=== PATIENT | female | born 1965 | race Caucasian/White ===

== ENCOUNTER 2022-10-20 06:36 | Emergency (ER) | payer SELFPAY ==
[2022-10-20 06:55] VITALS: BP 106/73; PULSE 80; RESP 18; TEMP 36.1; O2SAT 96; BMI 32.0
--- NOTE | 2022-10-20 07:25 | ED.GENADULT ---
HPI - General Adult General Chief complaint: Back Pain/Injury Stated complaint: Severe Back Pain Time Seen by Provider: 10/20/22 07:23 Source: patient Mode of arrival: ambulatory Limitations: no limitations History of Present Illness HPI narrative: Patient is a 57-year-old female presenting with lower back pain and spasming since Saturday. She works as a [employer] and had a 12 hour shift on Saturday, denies any trauma. States she woke up Saturday with lower back pain. She has used ice, heat, ibuprofen, and took 1 Flexeril yesterday without any relief of symptoms. She states that this morning she developed pain radiating down her right posterior upper leg. She denies any saddle anesthesia, bowel or bladder incontinence, fevers. She denies any numbness or tingling to her legs. She denies any history of prior back surgeries. She denies any abdominal pain or urinary symptoms but does report some lower abdominal bloating, denies urinary retention. She denies any history of cancer, IV drug use. Related Data Previous Rx's Medication Instructions Recorded cyclobenzaprine 5 mg tablet 5 mg PO TID PRN muscle spasm #12 10/20/22 tabs lidocaine 5 % topical patch 1 patch topical DAILY #15 ea 10/20/22 nitrofurantoin macrocrystal 100 mg 100 mg PO BID 7 days #14 caps 10/20/22 capsule Allergies Allergy/AdvReac Type Severity Reaction Status Date / Time amoxicillin Allergy Rash Verified 10/20/22 06:54 cephalexin [From Keflex] Allergy Rash Verified 10/20/22 06:54 fluticasone [From Flonase] Allergy Rash Verified 10/20/22 06:54 Review of Systems Review of Systems: As per HPI Yes all other systems are reviewed and are negative Constitutional: Constitutional: Reports as per HPI Neurologic: Denies Sensory deficit (Neuro) [facility] Social History Social History Advance Directives: Yes Advance Directives on File: No Physical Exam ED Vital Signs: Vital Signs - 24 hr 10/20/22 06:55 10/20/22 07:51 Temperature 96.9 F Pulse Rate 80 Respiratory Rate 18 18 Blood Pressure 106/73 Pulse Oximetry 96 Oxygen Delivery Method Room Air BMI result Body Mass Index 32.0 Const General: cooperative, healthy appearing and no acute distress Orientation/consciousness: oriented to person, oriented to place, oriented to time and patient oriented x3 Limitations: no limitations [facility] Head: Yes normocephalic and Yes atraumatic Ears: external ears normal General nose exam: Normal external nose present Face and sinus: Yes face symmetric Mouth: oropharynx normal and moist mucous membranes Throat: Yes uvula midline Eyes Pupils: Equal, round and reactive pupils present Neck Neck: Yes normal visual inspection and Yes supple Resp Effort & Inspection: normal respiratory effort and able to speak in complete sentences Auscultation: clear to auscultation bilaterally Cardio Rate: regular rate Rhythm: regular rhythm Heart sounds: S1 normal heart sound present and S2 normal heart sound present GI Palpation (GI): Soft to palpation, nontender and No Rebound tenderness present Auscultation: normoactive bowel sounds General: Yes no CVA tenderness Back/Spine/Pelvis Back: no CVA tenderness Thoracic/Lumbar Spine: thoracic and lumbar spine normal to inspection, No Thoracic/lumbar spine scar(s), thoraco-lumbar ROM normal, straight leg raise negative bilaterally, pain with thoraco-lumbar ROM, No paraspinal muscle tenderness, thoraco-lumbar spasm on the right greater than left, No thoracic spinal tenderness and No lumbar spinal tenderness Pelvis: no pain with anterior-posterior compression and no pain with lateral compression Sacroiliac joints: on the right nontender and on the left nontender Skin General skin exam: elasticity normal and turgor normal Neuro General: oriented to person, oriented to place, oriented to time, patient oriented x3, moves all extremities, no focal motor deficits and CN's II-XI intact bilaterally Cranial nerves: Yes Equal, round and reactive pupils present Cognition (Neuro): normal cognition Motor exam (neuro): Normal motor muscle tone present throughout and Abnormal motor strength present (bilateral lower extremities 4/5 strength) Sensory Exam: No Sensory deficit (Neuro) Deep tendon reflexes (DTR's): Right patellar reflex intensity grade: 2+ and Left patellar reflex intensity grade: 2+ Extrem General: Yes full ROM, Yes no pedal edema and Yes no calf tenderness Right lower extremity: normal to inspection, full ROM and foot Details: normal capillary refill and vascular exam Details: dorsalis pedis pulse present and posterior tibial pulse present Left lower extremity: normal to inspection, full ROM and foot Details: normal capillary refill and vascular exam Details: dorsalis pedis pulse present and posterior tibial pulse present Psych Mental Status: mental status grossly normal Affect: normal affect Thought process: Normal thought process present Course Course Course Narrative: 08:41 Patient re-evaluated, reports pain has significantly decreased after medications. States she was able to ambulate to the bathroom with little pain. Awaiting urine results. 09:12 Urine positive for nitrites, will treat for UTI as well as lumbar strain. Will discharge home, prescribed Macrobid x 7 days for UTI, as well as topical 5% lidocaine patches and Flexeril TID prn spasms, advised patient to continue to alternate ice and heat, use Tylenol or ibuprofen as needed. Instructed patient to follow up with PCP and return precautions discussed at bedside. Medications Administered Discontinued Medications Generic Name Dose Route Start Last Admin Trade Name Freq PRN Reason Stop Dose Admin Cyclobenzaprine HCl 10 mg 10/20/22 07:30 10/20/22 07:47 Cyclobenzaprine Hcl 10 Mg Tablet PO 10/20/22 07:31 10 mg ONCE ONE Administration Ketorolac Tromethamine 30 mg 10/20/22 07:30 10/20/22 07:47 Ketorolac Tromethamine 30 Mg/Ml Vial IM 10/20/22 07:31 30 mg ONCE ONE Administration Oxycodone HCl 5 mg 10/20/22 07:30 10/20/22 07:47 Oxycodone Hcl Immed Release 5 Mg Tablet PO 10/20/22 07:31 5 mg ONCE ONE Administration Medical Decision Making Medical Decision Making [facility] Narrative: Patient is a 57-year-old female presenting with lower back pain and spasming since Saturday, denies trauma. On exam patient appears uncomfortable, is crying, vital signs WNL, is afebrile, nontoxic appearing, no red flag findings, no focal neurological deficits. ROM limited by pain/spasms, negative bilateral SLR, no midline thoracic or lumbar spinal tenderness. Concern for lumbar strain, lumbar radiculopathy, musculoskeletal spasms, disc herniation, UTI, pyelonephritis, renal colic. Lower concern for fracture, spinal epidural abscess, cauda equina, cord compression, osteomyelitis, malignancy/mass, AAA rupture, retroperitoneal hemmorhage. Given the clinical picture, no indication for imaging at this time. Plan: pain control, urinalysis Please refer to course for remaining clinical decision making. Lab Data Labs: Lab Results 10/20/22 10/20/22 Range/Units 08:45 08:45 Urine Color Yellow Urine Appearance Clear Urine pH 5.5 (5.0-9.0) Ur Specific [place] 1.020 (1.005-1.025) Urine Protein Negative (Neg-Trace) mg/dL Urine Glucose (UA) Negative (Negative) mg/dL Urine Ketones Negative (Negative) mg/dL Urine Blood Small (1+) H (Negative) Urine Nitrite Positive H (Negative) Ur Leukocyte Esterase Negative (Negative) Urine Test NEGATIVE (NEGATIVE) Discharge Plan Discharge Clinical Impression: Strain of lumbar region, Urinary tract infection Patient Disposition: Home, Self-Care Instructions: Urinary Tract Infection in Women (DC), Low Back Strain (ED), Acute Low Back Pain (ED), Lower Back Exercises (ED) Additional Instructions: You were evaluated in the emergency department today for back pain. Your evaluation did not show signs of medical conditions requiring emergent intervention at this time. Your urine did show evidence of a urinary tract infection. You are being prescribed an antibiotic which you should take as prescribed and complete full course. Please follow up with your primary care provider in two days. We recommended that you use ibuprofen or Tylenol per package directions every 6 hours as needed for pain. If necessary, you can alternate these medications so that you take one medication every 3 hours. For instance, at noon take ibuprofen, then at 3:00 p.m. take Tylenol, then at 6:00 p.m. take ibuprofen. You have been prescribed a muscle relaxer which you may take every 8 hours as needed for spasms. You have been prescribed 5% topical lidocaine patches which you can wear for up to 12 hours in a 24 hour period. Do not apply heat directly over the patches. Please schedule an appointment for follow-up with your primary care physician this week for further evaluation of your symptoms. Return to the emergency department if you experience worsening back or flank pain, difficulty walking, fevers over 100.4 or greater, uncontrolled pain, vomiting, numbness, tingling, incontinence, groin numbness or tingling, or any other concerning symptoms. Prescriptions: New nitrofurantoin macrocrystal 100 mg capsule 100 mg PO BID 7 Days Qty: 14 0RF Rx Instructions: must administer with a meal/food lidocaine 5 % adhesive patch,medicated 1 patch topical DAILY Qty: 15 0RF Rx Instructions: leave on most painful area for up to 12 hrs cyclobenzaprine 5 mg tablet 5 mg PO TID PRN (Reason: muscle spasm) Qty: 12 0RF Stand Alone Forms: Work/School Release
[2022-10-20] MEDS: oxyCODONE HCl Immed Release 5 MG TABLET PO (07:47)
[2022-10-20] MEDS: Ketorolac Tromethamine 30 MG/ML VIAL IM (07:47)
[2022-10-20] MEDS: Cyclobenzaprine HCl 10 MG TABLET PO (07:47)
[2022-10-20 07:51] VITALS: RESP 18
[2022-10-20 08:54] LABS: Appearance Urine Clear; Color Urine Yellow; Glucose Urine UA Negative (Negative); Leukocyte Esterase Urine Negative (Negative); Nitrite Urine Positive (Negative); PH 5.5 (5.0-9.0); UMIC TRIGGER UACC YES; Urine Blood Small (1+) (Negative); Urine Ketones Negative (Negative); Urine Protein Negative (Neg-Trace)
[2022-10-20 08:57] LABS: UPreg QC Valid YES; Urine Pregnancy NEGATIVE (NEGATIVE)
--- NOTE | 2022-10-20 09:05 | PC.NURSE ---
SO MUCH BETTER , LAYING ON SIDE W NAD
[2022-10-20 09:36] LABS: Bacteria Urine 4+ (None Seen); Hyaline Casts Urine 0-2 /LPF (0-2); RBC Urine 0-2 /HPF (0-2); Squamous Epithelial Cell Urine 0-2 /HPF (0-2); UACC Culture Trigger YES; WBC Urine 0-5 /HPF (0-5)
== END 2022-10-20 09:28 | disposition home or self-care (01) ==
PROVIDERS: Registered Nurse Emergency; Emergency Provider Emergency Medicine; PCP Internal Medicine
DX: S39.012A Strain of muscle, fascia and tendon of lower back, initial encounter (principal); X50.9XXA Other and unspecified overexertion or strenuous movements or postures, initial encounter; N39.0 Urinary tract infection, site not specified; B96.20 Unspecified Escherichia coli [E. coli] as the cause of diseases classified elsewhere; Y93.9 Activity, unspecified; Y92.9 Unspecified place or not applicable; Y99.9 Unspecified external cause status
CPT/HCPCS: 81001; 81025; 87086; 87088; 87186; 96372; 99284; J1885